=== PATIENT | male | born 1955 | race Hispanic/Latino ===

== ENCOUNTER 2017-09-13 09:28 | Emergency (ER) | payer BC ==
[2017-09-13 09:59] VITALS: TEMP 98.6
[2017-09-13] MEDS ORDERED: Sodium Chloride 0.9% 1,000 ML IV STA (10:14)
[2017-09-13] MEDS ORDERED: Albuterol-Ipratrop 3 mg / 0.5 (3 ml) UD IH STA (10:15)
[2017-09-13 10:48] LABS: BASO # 0.01 K/mm3 (0.0-2.0); BASO % 0.1 % (0.0-3.0); EOS % 0.3 % (1.5-5.0); GRAN # 6.04 (1.4-6.5); GRAN % 89.8 % (50.0-68.0); HEMATOCRIT 40.3 % (42.0-52.0); LYMPH # 0.3 (1.2-3.4); LYMPH % 4.6 % (22.0-35.0); MEAN CELL VOLUME 97.3 fl (80.0-105.0); MEAN CORPUSCULAR HEMOGLOBIN 34.1 pg (25.0-35.0); MEAN PLATELET VOLUME 11.2 fl (7.0-11.0); MONO # 0.4 (0.1-0.6); MONO % 5.2 % (1.0-6.0); PLATELET COUNT 182 10^3/uL (120.0-450.0); RED CELL DISTRIBUTION WIDTH 13.6 % (11.5-14.5); WHITE BLOOD COUNT 6.7 10^3/ul (4.5-11.0)
--- NOTE | 2017-09-13 10:49 | RAD ---
HISTORY: shortness of breath COMPARISON: None available. TECHNIQUE: Chest PA and lateral FINDINGS: Examination limited by habitus. LUNGS: No focal consolidation. Please note that chest x-ray has limited sensitivity for the detection of pulmonary masses. PLEURA: No significant pleural effusion identified. No definite pneumothorax . CARDIOVASCULAR: Heart size appears within normal limits. Atherosclerotic calcifications of the aorta. OSSEOUS STRUCTURES: Degenerative changes of the spine. VISUALIZED UPPER ABDOMEN: Unremarkable. OTHER FINDINGS: None. IMPRESSION: No focal consolidation, significant pleural effusion, or definite pneumothorax identified.
[2017-09-13 10:50] LABS: ALB/GLOB RATIO 1.2 (1.1-1.8); ALKALINE PHOSPHATASE 78 U/L (38-126); ALT/SGPT 52 U/L (7-56); AST/SGOT 38 U/L (17-59); BILIRUBIN,TOTAL 0.9 mg/dL (0.2-1.3); BLOOD UREA NITROGEN 25 mg/dL (7-21); CALCIUM 9.3 mg/dL (8.4-10.5); CARBON DIOXIDE 24 mmol/L (21-33); CHLORIDE 105 mmol/L (98-107); GFR AFRICAN-AMERICAN > 60; GLUCOSE,RANDOM 141 mg/dL (70-110); POTASSIUM 3.1 mmol/L (3.6-5.0); SODIUM 141 mmol/L (132-148); TOTAL PROTEIN 7.7 g/dL (5.8-8.3)
--- NOTE | 2017-09-13 10:50 | ED PDOC ---
Arrival/HPI - General Chief Complaint: GI Problem Time Seen by Provider: 09/13/17 09:52 Historian: Patient - History of Present Illness Narrative History of Present Illness (Text): 09/13/17 10:47 61 y/o male presents to the ED complaining of nausea, multiple episodes of vomiting, and nonbloody diarrhea since last night. States at 9 pm last night he ate a sandwich at a restaurant. States he hasn't been able to tolerate any food or drink since then. This morning he also feels shortness of breath. Denies any chest pain, palpitations, fever, chills, abdominal pain, recent antibiotic use, or recent travel. Past Medical History - Provider Review Nursing Documentation Reviewed: Yes - Travel History Have you recently traveled outside [place] w/in the past 3 mons?: No - Past History Past History: Non-Contributing - Infectious Disease Hx of Infectious Diseases: None - Cardiac Hx Hypertension: Yes - Pulmonary Hx Asthma: Yes - Musculoskeletal/Rheumatological Hx Arthritis: Yes Other/Comment: b/l hip replacement. - Psychiatric Hx Substance Use: No - Surgical History Hx Joint Replacement: Yes Other/Comment: b/l hip replacements. Spot removed from lung. Left ankle surgery. B/L ear tube Family/Social History - Physician Review Nursing Documentation Reviewed: Yes Family/Social History: Unknown Family HX Smoking Status: Never Smoked Hx Alcohol Use: Yes Frequency of alcohol use: Socially Hx Substance Use: No Allergies/Home Meds Allergies/Adverse Reactions: Allergies No Known Allergies Allergy (Verified 09/13/17 09:40) Home Medications: Home Meds Medication Instructions Recorded Confirmed Atorvastatin [Lipitor] 10 mg PO DAILY 09/13/17 09/13/17 Fluticasone/Salmeterol 100/50 2 puff NEB BID 09/13/17 09/13/17 [Advair Diskus 100/50] HCTZ/Losartan Potassium [Hyzaar 1 tab PO DAILY 09/13/17 09/13/17 12.5 mg-50 mg] Review of Systems - Review of Systems Constitutional: absent: Fevers ENT: absent: Sore Throat, Rhinorrhea Respiratory: SOB. absent: Cough, Sputum, Wheezing Cardiovascular: absent: Chest Pain, Palpitations, Calf Pain Gastrointestinal: Diarrhea, Nausea, Vomiting. absent: Abdominal Pain, Constipation Genitourinary Male: absent: Dysuria Neurological: absent: Headache, Dizziness Physical Exam Vital Signs Reviewed: Yes Vital Signs Temp Pulse Resp BP Pulse Ox 09/13/17 11:28 78 18 133/79 98 09/13/17 09:45 98.6 F 101 H 19 133/92 H 96 Temperature: Afebrile Blood Pressure: Hypertensive Pulse: Tachycardic Respiratory Rate: Normal Appearance: Positive for: Well-Appearing, Non-Toxic, Comfortable Pain Distress: None Mental Status: Positive for: Alert and Oriented X 3 - Systems Exam Head: Present: Atraumatic, Normocephalic Pupils: Present: PERRL Extroacular Muscles: Present: EOMI Conjunctiva: Present: Normal Mouth: Present: Moist Mucous Membranes Neck: No: JVD Respiratory/Chest: Present: Clear to Auscultation, Good Air Exchange. No: Respiratory Distress, Accessory Muscle Use, Wheezes, Decreased Breath Sounds, Rales, Retracting Cardiovascular: Present: Regular Rate and Rhythm Abdomen: Present: Normal Bowel Sounds. No: Tenderness, Distention, Peritoneal Signs, Rebound, Guarding Back: Present: Normal Inspection. No: CVA Tenderness Upper Extremity: Present: Normal Inspection Lower Extremity: Present: Normal Inspection Neurological: Present: GCS=15 Skin: Present: Warm, Dry Psychiatric: Present: Alert, Oriented x 3 Medical Decision Making ED Course and Treatment: 09/13/17 13:09 Pt is afebrile and has nontender abdomen. No blood in the stools. Symptoms likely due to viral gastroenteritis. Hydration with IV fluid, zofran ordered for nausea.On reassessment pt states nausea resolved. Shortness of breath resolved after albuterol tx. Denies any complaints. States he feels better. RX for zofran given. Pt requests refill of albuterol inhaler due to asthma. Follow up with PCP advised. Pt expressed understanding and agrees with the plan. Reassessment Condition: Improved - Lab Interpretations Lab Results: 09/13/17 09:50 09/13/17 09:50 Lab Results 09/13/17 11:02: Urine Color Yellow, Urine Appearance Sl cloudy, Urine pH 6.5, Ur Specific Logan 1.020, Urine Protein 30 H, Urine Glucose (UA) Negative, Urine Ketones Trace H, Urine Blood Moderate H, Urine Nitrate Negative, Urine Bilirubin Small H, Urine Urobilinogen 0.2, Ur Leukocyte Esterase Negative, Urine RBC 1 - 3, Urine WBC 0 - 2, Urine Bacteria Mod, Hyaline Casts 0 - 2 09/13/17 09:50: Sodium 141, Potassium 3.1 L, Chloride 105, Carbon Dioxide 24, Anion Gap 14, BUN 25 H, Creatinine 0.7 L, Est GFR ( Amer) > 60, Est GFR ( Non-Af Amer) > 60, Random Glucose 141 H, Calcium 9.3, Total Bilirubin 0.9, AST 38, ALT 52, Alkaline Phosphatase 78, Troponin I < 0.01, NT-Pro-B Natriuret Pep 194, Total Protein 7.7, Albumin 4.2, Globulin 3.5, Albumin/Globulin Ratio 1.2 09/13/17 09:50: WBC 6.7, RBC 4.14, Hgb 14.1, Hct 40.3 L, MCV 97.3, MCH 34.1, MCHC 35.0, RDW 13.6, Plt Count 182, MPV 11.2 H, Gran % 89.8 H, Lymph % (Auto) 4.6 L, [place] % (Auto) 5.2, Eos % (Auto) 0.3 L, Baso % (Auto) 0.1, Gran # 6.04, Lymph # 0.3 L, [place] # 0.4, Eos # 0.0, Baso # 0.01, Neutrophils % (Manual) 94 H, Lymphocytes % (Manual) 4 L, Monocytes % (Manual) 1, Eosinophils % (Manual) 1, Platelet Evaluation Normal, Large Platelets Present - RAD Interpretation Radiology Orders: 09/13/17 10:15 CHEST TWO VIEWS (PA/LAT) [RAD] Stat - Medication Orders Current Medication Orders: Discontinued Medications Albuterol/Ipratropium (Duoneb 3 Mg/0.5 Mg (3 Ml) Ud) 3 ml IH STAT STA Stop: 09/13/17 10:16 Last Admin: 09/13/17 10:38 Dose: 3 ml Famotidine (Pepcid) 20 mg IVP STAT STA Stop: 09/13/17 10:15 Last Admin: 09/13/17 10:37 Dose: 20 mg IVP Administration Document 09/13/17 10:37 EWO (Rec: 09/13/17 10:37 EWO [id number]) Charges for Administration # of IVP Administrations 1 Sodium Chloride (Sodium Chloride 0.9%) 1,000 mls @ 999 mls/hr IV .Q1H1M STA Stop: 09/13/17 11:14 Last Admin: 09/13/17 10:38 Dose: 999 mls/hr eMAR Start Stop Document 09/13/17 10:38 EWO (Rec: 09/13/17 10:39 EWO [id number]) Intravenous Solution Start Date 09/13/17 Start Time 10:15 End Date 09/13/17 End time 11:15 Total Infusion Time 60 Ketorolac Tromethamine (Toradol) 15 mg IVP STAT STA Stop: 09/13/17 10:16 Last Admin: 09/13/17 10:38 Dose: 15 mg MAR Pain Assessment Document 09/13/17 10:38 EWO (Rec: 09/13/17 10:38 EWO [id number]) Pain Reassessment Is this a pain reassessment? No Sleep Is patient sleeping during reassessment? No Presence of Pain Presence of Pain No IVP Administration Document 09/13/17 10:38 EWO (Rec: 09/13/17 10:38 EWO [id number]) Charges for Administration # of IVP Administrations 1 Ondansetron HCl (Zofran Inj) 4 mg IVP STAT STA Stop: 09/13/17 10:15 Last Admin: 09/13/17 10:38 Dose: 4 mg IVP Administration Document 09/13/17 10:38 EWO (Rec: 09/13/17 10:38 EWO [id number]) Charges for Administration # of IVP Administrations 1 Potassium Chloride (Potassium Chloride Oral Soln) 40 meq PO STAT STA Stop: 09/13/17 10:55 Disposition/Present on Arrival - Present on Arrival Any Indicators Present on Arrival: No History of DVT/PE: No History of Uncontrolled Diabetes: No Urinary Catheter: No History of Decub. Ulcer: No History Surgical Site Infection Following: None - Disposition Have Diagnosis and Disposition been Completed?: Yes Diagnosis: Diarrhea Disposition: HOME/ ROUTINE Disposition Time: 12:03 Patient Plan: Discharge Condition: STABLE Discharge Instructions (ExitCare): Gastroenteritis (ED), Acute Nausea and Vomiting (ED) Print Language: HUNGARIAN Additional Instructions: Rest, drink plenty of fluids. Banana, rice, apple sauce, toast, soups, for 2 days. Advance as tolerated. Follow up with PCP in 2-3 days for reassessment. Return to the ED if symptoms worsen or if new symptoms such as fever, bloody stools or abdominal pain develops. Prescriptions: Albuterol HFA [Ventolin HFA 90 mcg/actuation (8 g)] 2 puff IH [id number] #1 inhaler Ondansetron [Zofran Odt] 4 mg PO TID PRN #12 odt PRN Reason: Nausea/Vomiting Referrals: Lm Randolph MD [Primary Care Provider] - Follow up with primary Forms: [employer] (Sudanese)
[2017-09-13] MEDS ORDERED: Potassium Chloride 40 mEq/30 ml LIQ UD PO STA (10:54)
[2017-09-13 11:01] LABS: TROPONIN I < 0.01 ng/mL
[2017-09-13 11:06] LABS: PH,URINE 6.5 (4.7-8.0); URINE BILIRUBIN SMALL (NEGATIVE); URINE BLOOD MODERATE (NEGATIVE); URINE GLUCOSE (UA) NEGATIVE (NEGATIVE); URINE KETONE TRACE mg/dL (NEGATIVE); URINE LEUKOCYTE ESTERASE NEGATIVE Leu/uL (NEGATIVE); URINE PROTEIN 30 mg/dL (<30 mg/dL); URINE UROBILINOGEN 0.2 E.U./dL (<1 E.U./dL)
[2017-09-13 11:09] LABS: URINE APPEARANCE SL CLOUDY (CLEAR); URINE COLOR YELLOW (YELLOW)
[2017-09-13 11:19] LABS: URINE BACTERIA MOD (NEG); URINE WBC 0 - 2 /hpf (0-6)
[2017-09-13 11:27] LABS: EOSINOPHIL 1 % (0.0-3.0); LARGE PLATELETS PRESENT; NEUTROPHIL 94 % (50.0-70.0); PLATELET ESTIMATE NORMAL (NORMAL)
[2017-09-13 12:21] VITALS: BP 133/79; PULSE 78; RESP 18; O2SAT 98
--- NOTE | 2017-09-13 21:48 | CARD ---
APPROVED REPORT EKG Measurement Heart [id number] <Conclusion> Sinus tachycardia Left axis deviation Abnormal ECG
== END 2017-09-13 12:22 | disposition home or self-care (01) ==
LOC: ED 09:28
DX: R19.7 Diarrhea, unspecified (principal)
CPT/HCPCS: 71020; 80053; 81001; 83880; 84484; 85025; 93005; 94640; 96361; 96374; 96375; 99284; J1885; J2405; J7040